=== PATIENT | female | born 1990 | race Two or more races ===

== ENCOUNTER 2023-05-23 06:54 | Emergency (ER) | payer OTHER ==
[~2023-05-23] VITALS: Ht 157.5 cm; Wt 82.1 kg
[2023-05-23] MEDS ORDERED: BENADRYL25 MG PO (07:41)
== END 2023-05-23 10:15 | disposition home or self-care (01) ==
LOC: ER 06:54
DX: K21.00 Gastro-esophageal reflux disease with esophagitis, without bleeding (principal)

== ENCOUNTER 2024-09-25 12:50 | Outpatient (CLI) | payer OTHER ==
[~2024-09-25 12:50] MED LIST: BENADRYL25 MG PO
== END 2024-09-25 12:51 | disposition home or self-care (01) ==
LOC: RAD 12:50
PROVIDERS: ATTEND Surgery
DX: Z01.810 Encounter for preprocedural cardiovascular examination (principal); Z01.811 Encounter for preprocedural respiratory examination; K43.6 Other and unspecified ventral hernia with obstruction, without gangrene